=== PATIENT | male | born 1930 | race Caucasian/White ===

== ENCOUNTER 2018-06-16 13:15 | Emergency (ER) | payer MEDICARE ==
[~2018-06-16] VITALS: Ht 175.3 cm; Wt 64.9 kg
[~2018-06-16 13:15] MED LIST: ADVAIR 100-501 EACH INH; ASPIRIN81 M1 PO; BREO ELLIPTA INH; DICLOFENAC POTA50 MG; ELIQUIS; FLONASE16 GM INH; FOSAMAX70 MG; FUROSEMIDE40 MG PO; LISINOPRIL10 MG PO; METHOTREXATE2.5 MG PO; WARFARIN SODIUM5 MG PO
[2018-06-16 14:27] LABS: BASOPHILS # (AUTO) 0.1 (0.0-0.1); BASOPHILS % 0.5 % (0.0-1.0); EOSINOPHILS # (AUTO) 0.1 (0.0-0.4); EOSINOPHILS % 0.7 % (0.0-6.0); HEMOGLOBIN 11.5 g/dL (14.0-18.0); LYMPHOCYTES # (AUTO) 0.6 (1.0-3.2); LYMPHOCYTES % 5.5 % (18.0-39.1); MEAN CORPUSCULAR HEMOGLOBIN 30.3 pg (28-32); MEAN CORPUSCULAR HGB CONC 34.8 g/dL (31-35); MEAN CORPUSCULAR VOLUME 87.1 fL (81-99); MONOCYTES # (AUTO) 1.1 (0.2-0.8); MONOCYTES % 10.1 % (4.4-11.3); NEUTROPHILS # (AUTO) 9.1 (2.1-6.9); NEUTROPHILS % 82.5 % (38.7-80.0); PLATELET COUNT 372 x10e3/uL (140-360); RED BLOOD COUNT 3.79 x10e6/uL (4.3-5.7); RED CELL DISTRIBUTION WIDTH 15.6 % (11.7-14.4)
[2018-06-16] MEDS ORDERED: SODIUM CHLORIDE 0.9% 500ML 500 ML IV STA (14:31)
[2018-06-16 14:32] LABS: CLARITY,URINE SL CLOUDY (CLEAR); COLOR,URINE YELLOW (YELLOW); LEUKOCYTE ESTERASE ,URINE NEGATIVE (NEGATIVE); NITRITE,URINE NEGATIVE (NEGATIVE)
[2018-06-16 14:33] LABS: KETONES,URINE NEGATIVE (NEGATIVE); PROTEIN,URINE DIPSTICK NEGATIVE (NEGATIVE); URINE UROBILINOGEN 0.2 mg/dL (0.2 - 1)
[2018-06-16 14:34] LABS: BILIRUBIN,URINE NEGATIVE (NEGATIVE)
[2018-06-16 14:35] LABS: ALANINE AMINOTRANSFERASE 28 IU/L (0-55); ALBUMIN/GLOBULIN RATIO 1.1 (0.8-2.0); ALKALINE PHOSPHATASE 75 IU/L (40-150); ANION GAP 14.1 mmol/L (8-16); BLOOD UREA NITROGEN 11 mg/dL (7-26); BUN/CREATININE RATIO 18 (6-25); CALCIUM 8.9 mg/dL (8.4-10.2); CARBON DIOXIDE 22 mmol/L (22-29); CHLORIDE 98 mmol/L (98-107); EST GLOMERULAR FILTRATION RATE > 60 ML/MIN (60-); GLUCOSE 146 mg/dL (74-118); POTASSIUM 4.1 mmol/L (3.5-5.1); SODIUM 130 mmol/L (136-145)
[2018-06-16 14:48] LABS: EPITHELIAL CELLS,URINE RARE /LPF
[2018-06-16 15:01] LABS: CREATINE KINASE MB 1.3 ng/mL (0-5.0)
--- NOTE | 2018-06-16 15:25 | Diagnostic Imaging Report ---
PROCEDURE: A single AP view of the chest. COMPARISON: 05/01/16 INDICATIONS: CHEST PAIN FINDINGS: Lines/tubes: None. Lungs: The lungs are well inflated. Pulmonary vascular congestion and mild interstitial edema. Pleura: There is no significant pleural effusion or pneumothorax. Heart and mediastinum: The heart and the mediastinum are enlarged. Aorta is calcified and mildly tortuous. Median sternotomy wires. Bones: No acute bony abnormality. IMPRESSION: Enlarged cardiomediastinal silhouette, pulmonary vascular congestion, and mild interstitial edema. Dictated by: Mohit Hoyt M.D. on 06/16/2018 at 15:31 Electronically approved by: Mohit Hoyt M.D. on 06/16/2018 at 15:31
--- NOTE | 2018-06-16 15:35 | Diagnostic Imaging Report ---
EXAMINATION: Head CT HISTORY: Altered mental status, weakness COMPARISON: Prior brain MRI in 05/02/[address] on 05/01/2016 TECHNIQUE: Multidetector axial images were obtained with, without contrast from the foramen magnum to the vertex . The images were reconstructed using brain and bone algorithms. Thin section brain images were reformatted into coronal and sagittal planes. Image quality: Motion/streaking artifact limits the evaluation of the the study. FINDINGS: Parenchyma: 1. 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 2. No mass or hemorrhage. No CT evidence of acute territorial vascular insult. Extra-axial spaces:No abnormal density. No extra-axial fluid collections Brain volume: Normal for age. Ventricles: No hydrocephalus or displacement. Arteries: No density suggestive of thrombus. Dural sinuses: No abnormal density. Extra-axial spaces: No abnormal density. Foramen magnum: No mass, Chiari malformation, or basilar invagination. Sella: No obvious mass. Paranasal/mastoid sinuses: Persistent =, thickening and partial opacification of the frontal, ethmoidal and left maxillary sinuses, complete opacification of the right maxillary sinus. Skull/Scalp: No lytic or blastic lesions. No fractures. IMPRESSION: 1. Suboptimal study due to motion, grossly no acute intracranial hemorrhage, mass or hydrocephalus. 2. Persistent moderate chronic microvascular ischemic changes. Signed by: Dr. Tessa Leblanc M.D. on 06/16/2018 3:31 PM
[2018-06-16] MEDS ORDERED: KETOROLAC TROMETHAMINE 30 MG/ML VIAL IV PRN (17:15)
[2018-06-16] MEDS ORDERED: ACETAMINOPHEN 325 MG TAB PO PRN (17:15)
[2018-06-16] MEDS ORDERED: ONDANSETRON HCL INJ 2 MG/ML VIAL IV PRN (17:15)
[2018-06-16 18:16] VITALS: BP 136/83
== END 2018-06-16 18:33 | disposition home or self-care (01) ==
LOC: ER 13:15
DX: R41.0 Disorientation, unspecified (principal); G30.0 Alzheimer's disease with early onset; F01.50 Vascular dementia, unspecified severity, without behavioral disturbance, psychotic disturbance, mood disturbance, and anxiety
CPT/HCPCS: 36415; 70450; 71045; 80053; 81001; 82550; 82553; 84484; 85025; 99284; J7040

== ENCOUNTER → 2018-09-05 | Outpatient (CLI) | payer MEDICARE ==
--- NOTE | 2018-09-05 13:47 | Diagnostic Imaging Report ---
EXAMINATION: PA and lateral views of the chest. COMPARISON: None CLINICAL HISTORY: Shortness of breath DISCUSSION: Lines/tubes: Sternotomy wires. Heart valve. Lungs: Cardiomegaly with central venous congestion. Scarring in the right lateral lung. No edema or pneumonia. Pleura: No pleural effusion or pneumothorax. Heart and mediastinum: The cardiomediastinal silhouette is normal. Bones and soft tissues: No acute bony abnormalities. IMPRESSION: Cardiomegaly with central pulmonary venous congestion. Signed by: Dr. Franklin Garcia M.D. on 09/05/2018 1:43 PM
== END ==
LOC: RAD 12:55
PROVIDERS: ATTEND Specialist
DX: R06.02 Shortness of breath (principal); J18.9 Pneumonia, unspecified organism
CPT/HCPCS: 71046

== ENCOUNTER 2018-11-16 00:14 | Emergency (ER) | payer MEDICARE ==
[~2018-11-16] VITALS: Ht 175.3 cm; Wt 64.9 kg
--- OUTSIDE RECORDS SUMMARY | 2018-11-16 00:17 | XMS REPORT | Clinical Summary ---
Author Author [facility] Address Unknown Phone Unavailable Care Team Providers Care Link Trainer Teacher Name Role Phone Flavio Huang MD PCP Allergies Comments Active Allergy Reactions Severity Noted Date confusion Codeine 03/05/2017 Medications End Date Status Medication Sig Dispensed Refills Start Date Active alendronate (FOSAMAX) 70 . 0 MG tablet 7 Active RESTASIS 0.05 % . 0 ophthalmic emulsion 7 Active atorvastatin (LIPITOR) 10 . 0 MG tablet 7 Active BREO ELLIPTA 200-25 . 0 mcg/dose DsDv 7 Active sulfaSALAzine . 0 (AZULFIDINE) 500 mg 7 tablet Active methotrexate 2.5 MG . 0 tablet 7 Active folic acid (FOLVITE) 1 MG . 0 tablet 7 Active sodium chloride 1 gram Take 1 g by 0 tablet mouth 2 (two) times daily . Active omeprazole (PRILOSEC) 10 Take 10 mg by 0 MG capsule mouth daily. Active Problems Problem Noted Date Colitis 05/20/2017 Pneumonia of left lower lobe due to infectious organism 03/05/2017 Immunizations Name Dates Previously Given Next Due Pneumococcal 03/10/2017 Polysaccharide (Pneumovax) Social History Date Tobacco Use Types Packs/Day Years Used Never Smoker Alcohol Use Drinks/Week oz/Week Comments No Sex Assigned at Date Recorded Not on file Industry Job Start Date Occupation Not on file Not on file Not on file Travel End Travel History Travel Start No recent travel history available. Last Filed Vital Signs Not on file Plan of Treatment Not on file Results Not on fileafter 11/15/2017 Insurance Payer Benefit Subscriber ID Type Phone Address Plan / Group HUMANA - MEDICARE MGD HUMANA xxxxxxxxx [facility] MEDICARE Contracted ADV Advance Directives For more information, please contact: [facility] [address] [place] [address] Date Inactivated Comments Code Status Date Activated 05/23/2017 6:03 PM Full Code 05/20/2017 11:10 PM This code status was determined by: Patient 03/13/2017 2:19 PM Full Code 03/06/2017 1:23 AM This code status was determined by: Patient
--- OUTSIDE RECORDS SUMMARY | 2018-11-16 00:17 | XMS REPORT | Clinical Summary ---
Author Author [facility] Address Unknown Phone Unavailable Care Team Providers Care Computer Systems Technology Instructor Name Role Phone Asked, No Pcp PCP Unavailable Allergies Comments Active Allergy Reactions Severity Noted Date Hallucinations/Agitation per family Codeine Other (See Medium 07/28/2016 Comments) Medications End Date Status Medication Sig Dispensed Refills Start Date Active albuterol (PROVENTIL) 2.5 Take 2.5 mg 0 mg /3 mL (0.083 %) by 6 nebulizer solution nebulization every 6 (six) hours as needed for wheezing or shortness of breath (Asthma, COPD). Active atorvastatin (LIPITOR) 10 Take 10 mg by 0 05/31/ MG tablet mouth daily. 6 Active fluticasone (FLONASE) 50 1 spray into 0 mcg/actuation nasal spray each nostril 6 daily. Active BREO ELLIPTA 200-25 Take 1 0 mcg/dose blister with inhalations 6 device powder for by mouth once inhalation daily. Active folic acid (FOLVITE) 1 MG Take 1 mg by 0 tablet mouth daily. 6 Active methotrexate 2.5 MG Take 10 mg by 0 tablet mouth once a 6 week. Saturday Active omeprazole (PriLOSEC) 20 Take 20 mg by 0 06/20/ MG capsule mouth daily. 6 Active sulfaSALAzine Take 500 mg 0 (AZULFIDINE) 500 mg by mouth 2 6 tablet (two) times a day. Active cycloSPORINE (RESTASIS) Administer 1 0 0.05 % ophthalmic drop to both emulsion eyes daily. Active lisinopril Take 2.5 mg 0 (PRINIVIL,ZESTRIL) 2.5 MG by mouth tablet daily as needed (SBP>110). Active thiamine 100 MG tablet Take 100 mg 0 by mouth daily. Active sodium chloride 1 gram Take 1 g by 0 tablet mouth 2 (two) times a day. Active digOXIN (LANOXIN) 125 mcg Take 125 mcg 0 tablet by mouth nightly. Active Problems Problem Noted Date Transient alteration of awareness 08/19/2016 Leukocytosis 07/31/2016 Nontraumatic intracerebral hemorrhage 07/28/2016 Hyponatremia 07/28/2016 COPD (chronic obstructive pulmonary disease) 07/28/2016 Hypomagnesemia 07/28/2016 Diastolic congestive heart failure 07/28/2016 Uncontrolled hypertension 07/28/2016 Chronic atrial fibrillation 07/28/2016 Encounters Care Team Description Date Type Specialty Jordyn Duggan Jr., MD S/P AVR (aortic valve replacement) 09/15/2018 Hospital Procedural Cardiology Encounter Jordyn Duggan Jr., MD S/P AVR (aortic valve replacement) (Primary Dx) 09/10/2018 Transcribe Procedural Cardiology Orders after 11/15/2017 Family History Medical History Relation Name Comments No Known Problems Brother No Known Problems Cousin No Known Problems Daughter No Known Problems Father No Known Problems Maternal Grandfather No Known Problems Maternal Grandmother No Known Problems Mother No Known Problems Paternal Grandfather No Known Problems Paternal Grandmother No Known Problems Sister No Known Problems Son Asthma Neg Hx Diabetes Neg Hx Heart failure Neg Hx Hyperlipidemia Neg Hx Hypertension Neg Hx Migraines Neg Hx Osteoarthritis Neg Hx Rashes / Skin problems Neg Hx Rheum arthritis Neg Hx Seizures Neg Hx Stroke Neg Hx Thyroid disease Neg Hx Relation Name Status Comments Brother Cousin Daughter Father Maternal Grandfather Maternal Grandmother Mother Paternal Grandfather Paternal Grandmother Sister Son Social History Date Tobacco Use Types Packs/Day Years Used Never Smoker Alcohol Use Drinks/Week oz/Week Comments No Sex Assigned at Date Recorded Not on file Industry Job Start Date Occupation Not on file Not on file Not on file Travel End Travel History Travel Start No recent travel history available. Last Filed Vital Signs Time Taken Vital Sign Reading 09/15/2018 11:03 AM HAM CLERK Blood Pressure 145/67 - Pulse - - Temperature - - Respiratory Rate - - Oxygen Saturation - - Inhaled Oxygen - Concentration 09/15/2018 11:03 AM HAM CLERK Weight 62.6 kg (138 lb) 09/15/2018 11:03 AM HAM CLERK Height 170.2 cm (5' 7") 09/15/2018 11:03 AM HAM CLERK Body Mass Index 21.61 Plan of Treatment Health Maintenance Due Date Last Done Comments SHINGLES VACCINES (1 of 1979 2) PNEUMOCOCCAL 1994 POLYSACCHARIDE VACCINE AGE 65 AND OVER PNEUMOCOCCAL-13 1994 INFLUENZA VACCINE 06/04/2018 Implants Device Identifier Shelf Expiration Date Model / Serial / Lot Implanted Type Area Manufactur er Lens Lens Procedures Comments Procedure Name Priority Date/Time Associated Diagnosis ECHOCARDIOGRAM 2D Routine 09/15/2018 S/P AVR (aortic valve COMPLETE W MMODE SPECTRAL 12:04 PM HAM CLERK replacement) COLOR DOPPLER ([id number]) after 11/15/2017 Results * Echocardiogram complete w contrast and 3D if needed (09/15/2018 12:04 PM HAM CLERK) Narrative Performed At [facility] Echocardiography Report [id number] [place] [address] Pat.Name:RADHA VERAS [facility] With [facility].ID:[id number] .Date: 09/15/2018Refer.MD:JORDYN DUGGAN MD Exam Time: 11:01:00 AM Study Type:Routine Echo Height:67inWeight:138lb BSA: 1.73 m2 DOBAge:1930,88Y Sex: MALEBP:145/67 HR:69 bpmSonogrphr: DAVID Espino Pat. Stat.:OutpatientStudy Status:Final Echo Event ID:[id number] Order ID:[id number] Reason for Study:s/p AVR, Prosthetic valve, post op eval History / Clinical:Shortness of Breath, Congestive heart failure, Hypertension, Astma Procedures:2D Echo, Colorflow Doppler Race:C SUMMARY: Bioprosthetic aortic valve. Composite aortic graft visualized. Aortic root diameter is moderately enlarged. Mild transvalvular aortic regurgitation. Normal prosthetic valve velocity and gradient. FINDINGS: LV: LV size is mildly enlarged. There is severe eccentric LV hypertrophy.An LV tendon is seen. This is a normal variant.LV EF is mildly depressed. Estimated EF is 45-49%. RV: RV size is normal. A pacemaker wire is seen in the RV. RV systolicfunction is normal. RV wall motion is normal. LA: LA volume is severely enlarged. RA: RA volume is mildly enlarged. A pacemaker wire is seen. AO: Aortic root diameter is moderately enlarged. Composite aorticgraft visualized. ADAM: No pericardial effusion. AV: Bioprosthetic aortic valve. Mild transvalvular aortic regurgitation.Normal prosthetic valve velocity and gradient.Surgical Prosthetic AV Doppler velocity index is 0.5(normal>0.25). MV: Mild thickening of mitral leaflets. Mild mitral regurgitation. PV: No structural PV abnormalities noted. Mild pulmonic regurgitation. TV: No structural TV abnormalities noted. Mild tricuspid regurgitation Angelo: LV relaxation is impaired. LV filling pressure is elevated. Other:Estimated PA systolic pressure is 61 mmHg, assuming a mean RAPof 20 mmHg. MEASUREMENTS: 2D Parasternal Long [place] LVOT 2.1 cmLA Ds5.1 cm LVIDd5.4 cmIndex3.1 cm/m Ao Rtd 4.9 cm Index2.8 cm/m LVIDs3.9 cm LV Sefq324.6 g(122-174) LV%fs 27.6 % LVM Smrao531.5 g/m2 IVSd 1.5 cmRWT0.5 LVPWd1.3 cm LA Sng Plane LA Area 26.2 cm2(8.8-23.4) LA Vol81 ml Index46.8 ml/m LA LngAx 6.8 cm RA Sng Plane RA Area 21.1 cm2(8.3-19.5) RA Vol59.2 ml Index34.2 ml/m RA LngAx 6.1 cm DOPPLER AV For Flow/CHUN AV pkVel 281.8 cm/s (100-170) AV AC/ET 0.3 AV mnVel 171.6 cm/Janna TVI47.5 cm AV pkPG 31.8 mmHgAVpkAcRt 4788.4 cm/s2 AV Mean G 14.8 mmHgAV AdAy3688.1 cm/s2 AV AC 87 msec (83-118) AV Area1.8 cm2(3-5) AV ET277 msec LVOT For Flow LVOT Area3.5 cm2 LVOT SV 83.8 ml [id number] cm/sHR66.6 bpm LVOTpkPG 4.5 mmHgLVOT CO5.6 l/min LVOTmnPG 2.9 mmHgLVOT CI3.2 l/m/m2 LVOT TVI24.2 cm WALL MOTION: RESTING WALL MOTION: Basal Inferoseptal, Basal Inferior perkins are akinetic.Mid Inferior wall is hypokinetic.Basal Anterior, Basal Anteroseptal, Basal Inferolateral, Basal Anterolateral, Mid Anterior, Mid Anteroseptal, Mid Inferoseptal, Mid Inferolateral, Mid Anterolateral, Apical Anterior, Apical Septal, Apical Inferior, Apical Lateral, Apical perkins are mildly hypokinetic. Wall Index=1.7 Signed 09/16/2018 04:40 PM Serina Salinas M.D. Procedure Note Interface, Radiology Results In - 09/16/2018 4:41 PM HAM CLERK Echocardiography Report [id number] [address], [place] [id number] Pat.Name: RADHA VERAS.ID: [id number] .Date: 09/15/2018 Refer.MD: JORDYN DUGGAN MD Exam Time: 11:01:00 AM Study Type:Routine Echo Height: 67in Weight: 138lb BSA: 1.73 m2 Age: 2 1930,88Y Sex: MALE BP: 145/67 HR: 69 bpm Sonogrphr: Brian Allison [facility] Pat. Stat.:Outpatient Study Status:Final Echo Event ID:[id number] Order ID: [id number] Reason for Study:s/p AVR, Prosthetic valve, post op eval History / Clinical:Shortness of Breath, Congestive heart failure, Hypertension, Astma Procedures:2D Echo, Colorflow Doppler Race: C SUMMARY: Bioprosthetic aortic valve. Composite aortic graft visualized. Aortic root diameter is moderately enlarged. Mild transvalvular aortic regurgitation. Normal prosthetic valve velocity and gradient. FINDINGS: LV: LV size is mildly enlarged. There is severe eccentric LV hypertrophy. An LV tendon is seen. This is a normal variant. LV EF is mildly depressed. Estimated EF is 45-49%. RV: RV size is normal. A pacemaker wire is seen in the RV. RV systolic function is normal. RV wall motion is normal. LA: LA volume is severely enlarged. RA: RA volume is mildly enlarged. A pacemaker wire is seen. AO: Aortic root diameter is moderately enlarged. Composite aortic graft visualized. ADAM: No pericardial effusion. AV: Bioprosthetic aortic valve. Mild transvalvular aortic regurgitation. Normal prosthetic valve velocity and gradient. Surgical Prosthetic AV Doppler velocity index is 0.5 (normal>0.25). MV: Mild thickening of mitral leaflets. Mild mitral regurgitation. PV: No structural PV abnormalities noted. Mild pulmonic regurgitation. TV: No structural TV abnormalities noted. Mild tricuspid regurgitation Angelo: LV relaxation is impaired. LV filling pressure is elevated. Other: Estimated PA systolic pressure is 61 mmHg, assuming a mean RAP of 20 mmHg. MEASUREMENTS: 2D Parasternal Long [place] LVOT 2.1 cm LA Ds 5.1 cm LVIDd 5.4 cm Index 3.1 cm/m Ao Rtd 4.9 cm Index 2.8 cm/m LVIDs 3.9 cm LV Mass 329.6 g (122-174) LV%fs 27.6 % LVM Index 190.5 g/m2 IVSd 1.5 cm RWT 0.5 LVPWd 1.3 cm LA Sng Plane LA Area 26.2 cm2 (8.8-23.4) LA Vol 81 ml Index 46.8 ml/m LA LngAx 6.8 cm RA Sng Plane RA Area 21.1 cm2 (8.3-19.5) RA Vol 59.2 ml Index 34.2 ml/m RA LngAx 6.1 cm DOPPLER AV For Flow/CHUN AV pkVel 281.8 cm/s (100-170) AV AC/ET 0.3 AV mnVel 171.6 cm/s AV TVI 47.5 cm AV pkPG 31.8 mmHg AVpkAcRt 4788.4 cm/s2 AV Mean G 14.8 mmHg AV DeRt 1018.1 cm/s2 AV AC 87 msec (83-118) AV Area 1.8 cm2 (3-5) AV ET 277 msec LVOT For Flow LVOT Area 3.5 cm2 LVOT SV 83.8 ml LVOTpkVel 106 cm/s HR 66.6 bpm LVOTpkPG 4.5 mmHg LVOT CO 5.6 l/min LVOTmnPG 2.9 mmHg LVOT CI 3.2 l/m/m2 LVOT TVI 24.2 cm WALL MOTION: RESTING WALL MOTION: Basal Inferoseptal, Basal Inferior perkins are akinetic. Mid Inferior wall is hypokinetic. Basal Anterior, Basal Anteroseptal, Basal Inferolateral, Basal Anterolateral, Mid Anterior, Mid Anteroseptal, Mid Inferoseptal, Mid Inferolateral, Mid Anterolateral, Apical Anterior, Apical Septal, Apical Inferior, Apical Lateral, Apical perkins are mildly hypokinetic. Wall Index=1.7 Signed 09/16/2018 04:40 PM Serina Salinas M.D. Performing Organization Address City/State/Zipcode Phone Number [facility] [address] [place] [address] after 11/15/2017 Insurance Payer Benefit Subscriber ID Type Phone Address Plan / Group HUMANA MEDICARE HUMANA xxxxxxxxx PPO MEDICARE PPO/PFFS/E [facility] Advance Directives Patient has advance care planning documents on file. For more information, parag barger contact: [facility] [address] [place] [address]
[2018-11-16] MEDS ORDERED: ATORVASTATIN CA10 MG PO (00:27)
[2018-11-16] MEDS ORDERED: ALENDRONATE SOD70 MG PO (00:27)
[2018-11-16] MEDS ORDERED: FOLIC ACID1 MG PO (00:27)
[2018-11-16] MEDS ORDERED: SERTRALINE HCL50 MG PO (00:27)
[2018-11-16] MEDS ORDERED: SULFASALAZINE500 MG PO (00:27)
[2018-11-16] MEDS ORDERED: DIGOXIN125 MCG PO (00:27)
[2018-11-16 00:29] LABS: BASOPHILS # (AUTO) 0.1 (0.0-0.1); BASOPHILS % 0.5 % (0.0-1.0); EOSINOPHILS # (AUTO) 0.6 (0.0-0.4); EOSINOPHILS % 5.1 % (0.0-6.0); HEMATOCRIT 34.8 % (38.2-49.6); HEMOGLOBIN 12.1 g/dL (14.0-18.0); LYMPHOCYTES # (AUTO) 0.7 (1.0-3.2); LYMPHOCYTES % 5.6 % (18.0-39.1); MEAN CORPUSCULAR HEMOGLOBIN 31.6 pg (28-32); MEAN CORPUSCULAR HGB CONC 34.8 g/dL (31-35); MEAN CORPUSCULAR VOLUME 90.9 fL (81-99); MONOCYTES # (AUTO) 1.4 (0.2-0.8); MONOCYTES % 11.7 % (4.4-11.3); NEUTROPHILS # (AUTO) 9.1 (2.1-6.9); NEUTROPHILS % 76.8 % (38.7-80.0); PLATELET COUNT 235 x10e3/uL (140-360); RED BLOOD COUNT 3.83 x10e6/uL (4.3-5.7); RED CELL DISTRIBUTION WIDTH 17.4 % (11.7-14.4)
[2018-11-16] MEDS ORDERED: METHOTREXATE2.5 MG PO (00:31)
[2018-11-16 00:45] LABS: ALANINE AMINOTRANSFERASE 12 IU/L (0-55); ALBUMIN 3.3 g/dL (3.5-5.0); ALBUMIN/GLOBULIN RATIO 1.3 (0.8-2.0); ALKALINE PHOSPHATASE 68 IU/L (40-150); ANION GAP 13.2 mmol/L (8-16); BLOOD UREA NITROGEN 18 mg/dL (7-26); BUN/CREATININE RATIO 27 (6-25); CALCIUM 9.2 mg/dL (8.4-10.2); CARBON DIOXIDE 24 mmol/L (22-29); CHLORIDE 102 mmol/L (98-107); CREATININE, SERUM 0.66 mg/dL (0.72-1.25); EST GLOMERULAR FILTRATION RATE > 60 ML/MIN (60-); GLUCOSE 96 mg/dL (74-118); POTASSIUM 4.2 mmol/L (3.5-5.1); SODIUM 135 mmol/L (136-145)
[2018-11-16 01:14] VITALS: BP 134/68
--- NOTE | 2018-11-16 01:16 | NUR ---
SPOKE WITH PTS DAUGHTER DREW, SHE IS UNABLE TO PICK PT UP FOR DISCHARGE AT THIS TIME, [facility] CALLED
== END 2018-11-16 01:49 | disposition home or self-care (01) ==
LOC: ER 00:14
DX: M25.552 Pain in left hip (principal); M25.551 Pain in right hip; M25.562 Pain in left knee; M25.561 Pain in right knee; M16.0 Bilateral primary osteoarthritis of hip; M17.0 Bilateral primary osteoarthritis of knee; I48.91 Unspecified atrial fibrillation; M06.9 Rheumatoid arthritis, unspecified; Z85.46 Personal history of malignant neoplasm of prostate
CPT/HCPCS: 36415; 80053; 85025; 99284